=== PATIENT | female | born 1950 | race Caucasian/White ===

== ENCOUNTER 2017-03-12 07:52 | Outpatient (CLI) ==
[2015-12-02 18:26] VITALS: BMI 25.8
== END 2017-03-12 07:53 ==
LOC: AMBL 07:52
PROVIDERS: ATTEND Family Medicine
DX: R41.82 Altered mental status, unspecified (principal); R53.1 Weakness; R53.83 Other fatigue; R51 Headache; R00.0 Tachycardia, unspecified; Z96.659 Presence of unspecified artificial knee joint; Z98.890 Other specified postprocedural states